=== PATIENT | female | born 1970 | race Caucasian/White ===

== ENCOUNTER → 2018-08-30 12:23 | Outpatient (CLI) | payer MEDICARE, OTHER ==
[2014-01-21 13:38] VITALS: BMI 21.4
[~2018-08-30 12:23] MED LIST: BENEFIBER1 PKT NG; CARAFATE1 G/10 ML PO; DEMEROL100 MG PO; FOLIC ACID1 MG PO; GOLYTELY OR; LASIX20 MG PO; LINZESS290 MCG PO; MORPHINE IMMEDI15 MG PO; OPANA ER20 MG PO; OPANA5 MG PO; OXYCODONE HCL10 MG PO; PHENERGAN25 M1 PO; PHENERGAN25 MG RC; PRILOSEC20 MG PO; STOOL SOFTENER240 MG PO; VALIUM10 MG PO; VITAMIN D50000 UNIT PO
== END | disposition home or self-care (01) ==
LOC: D.NM 12:23
DX: R11.2 Nausea with vomiting, unspecified (principal); K21.9 Gastro-esophageal reflux disease without esophagitis; R10.9 Unspecified abdominal pain